=== PATIENT | male | born 1955 | race Caucasian/White ===

== ENCOUNTER → 2017-07-07 | Outpatient (CLI) | payer OTHER ==
--- NOTE | 2017-07-07 15:21 | CARD ---
MR#: [id number] Date of Study: 07/07/2017 Ordering Physician: ADRIANA MORAN, Referring Physician: ADRIANA MORAN, Tech: BEVERLEY Payne APPROVED REPORT EXAM: Two-dimensional and M-mode echocardiogram with Doppler and color Doppler. Other Information Quality : Fair INDICATION Murmur 2D DIMENSIONS Left Atrium(2D)4.7 (1.6-4.0cm)IVSd1.0 (0.7-1.1cm) Aortic Root(2D)2.8 (2.0-3.7cm)LVDd4.6 (3.9-5.9cm) LVOT Diameter2.0 (1.8-2.4cm)PWd1.1 (0.7-1.1cm) LVDs3.0 (2.5-4.0cm)FS (%) 28.0 % LVEF(%)63.0 (>50%) Aortic Valve AoV Peak Blake.310.4cm/sAoV VTI57.1cm AO Peak GR.38.5mmHgLVOT Peak Blake.119.0cm/s LVOT VTI 21.64cmAO Mean GR.22mmHg LASHANDA (VMAX)1.36ry7PQD (VTI)1.13cm2 Mitral Valve MV E Cfucgtoc10.4cm/sMV A Velocity0.8cm/s E/A Ratio88.0 LEFT VENTRICLE The left ventricle is normal size. There is normal left ventricular wall thickness. The left ventricu lar systolic function is normal. The Ejection Fraction is 60-65%. There is normal LV segmental wall m otion. RIGHT VENTRICLE The right ventricle is normal size. There is normal right ventricular wall thickness. The right ventr icular systolic function is normal. ATRIA The left atrium is mildly dilated. The right atrium size is normal. The interatrial septum is intact with no evidence for an atrial septal defect or patent foramen ovale as noted on 2-D or Doppler imagi ng. AORTIC VALVE The aortic valve is probably tri-cuspid. The aortic valve is moderately calcified. Doppler and Color Flow revealed no significant aortic regurgitation. There is mild valvular aortic stenosis. The maximu m doppler velocity is 3.1m/sec, the maximum Pg is 38mmHg and the mean Pg iw 22mmHg. MITRAL VALVE There is no evidence of mitral valve prolapse. There is no mitral valve stenosis. Doppler and Color F low revealed no mitral valve regurgitation TRICUSPID VALVE Doppler and Color Flow revealed trace tricuspid regurgitation. There is no tricuspid valve stenosis. PULMONIC VALVE The pulmonic valve is not well visualized. Doppler and Color Flow revealed no pulmonic valvular regur gitation. There is no pulmonic valvular stenosis. GREAT VESSELS The aortic root is normal in size. The IVC is normal in size and collapses >50% with inspiration. PERICARDIAL EFFUSION There is no pleural effusion. There is no evidence of significant pericardial effusion. Critical Notification Critical Value: No <Conclusion> The left ventricular systolic function is normal. The Ejection Fraction is 60-65%. There is normal LV segmental wall motion. There is mild valvular aortic stenosis with mean gradient 22 mm Hg.. Trace tricuspid regurgitation. There is no evidence of significant pericardial effusion. Signed by : Mane Townsend, Electronically Approved : 07/07/2017 15:20:15
== END | disposition home or self-care (01) ==
LOC: ECHO 13:38
PROVIDERS: ATTEND Family Medicine
DX: I35.0 Nonrheumatic aortic (valve) stenosis (principal)
CPT/HCPCS: 93306